=== PATIENT | male | born 1985 | race Caucasian/White ===

== ENCOUNTER → 2016-10-14 | Outpatient (CLI) | payer OTHER ==
[~2016-10-14] MED LIST: BENTYL10 MG PO; DAYPRO600 M1 PO; HYDROCODONE BIT1 T11 PO; INDOMETHACIN50 MG PO; LOMOTIL 0.025 M1 TA1 PO; NKHM; PREDNISONE20 MG PO; ROBAXIN750 MG PO; ZITHROMAX Z PA250 MG PO; ZOFRAN ODT4 MG SL; ZYRTEC10 M2 PO
== END | disposition home or self-care (01) ==
LOC: US 09:41
DX: K76.0 Fatty (change of) liver, not elsewhere classified (principal)

== ENCOUNTER 2020-09-11 09:06 | Inpatient (IN) | payer OTHER ==
[~2020-09-11] VITALS: Ht 182.8 cm; Wt 98.0 kg
[2020-09-11] VITALS (7 sets, daily range): BP systolic 126–159; BP diastolic 86–118
[2020-09-11 09:59] LABS: BASO # 0.1 10*3/uL (0.0-0.1); BASO % 0.8 % (0.0-1.0); EOS # 0.2 10*3/uL (0.0-0.4); HEMATOCRIT 50.6 % (42.0-52.0); LYMPH # 2.6 10*3/uL (1.3-4.4); LYMPH % 33.2 % (27.0-41.0); MEAN CELL VOLUME 79.1 fl (80.0-94.0); MEAN CORPUSCULAR HGB 26.7 pg (27.0-31.0); MEAN CORPUSCULAR HGB CONC 33.8 g/dl (33.0-37.0); MEAN PLATELET VOLUME 10.5 fl (9.6-12.3); MONO # 0.6 10*3/uL (0.1-1.0); MONO % 7.4 % (3.0-9.0); NEUT # 4.4 10*3/uL (2.3-7.9); NEUT % 55.2 % (47.0-73.0); PLATELET COUNT AUTOMATED 279 10*3/uL (130-400); RED CELL DISTRI WIDTH 12.3 % (0-14.5); WHITE BLOOD COUNT 7.9 10*3/uL (4.8-10.8)
[2020-09-11 10:16] LABS: ALBUMIN 3.9 gm/dl (3.1-4.5); ALKALINE PHOSPHATASE 80 U/L (45-117); BUN 7 mg/dl (7-24); CHLORIDE 97 mmol/L (98-107); POTASSIUM 3.5 mmol/L (3.5-5.1); SGOT/AST 41 IU/L (3-35); SGPT/ALT 80 U/L (12-78); SODIUM 130 mmol/L (136-145); TOTAL PROTEIN 8.4 gm/dL (6.4-8.2)
[2020-09-11 10:18] LABS: TROPONIN I < 0.015 ng/ml (<0.045)
[2020-09-11 10:28] LABS: BILIRUBIN Negative (Negative); BLOOD Negative (Negative); CLARITY Clear (Clear); COLOR Yellow (Yellow); GLUCOSE 3+ (Negative); KETONE Negative (Negative); LEUKO ESTERASE Negative (Negative); NITRITE Negative (Negative); SPECIFIC GRAVITY >= 1.030 (1.001-1.030); UROBILINOGEN 0.2 E.U./dl (0.0-1.0)
[2020-09-11 10:35] LABS: BACTERIA TRACE; RBC 0-2 rbc/hpf (0-2); WBC 0-2 wbc/hpf (0-5)
[2020-09-12 06:20] LABS: BASO % 0.6 % (0.0-1.0); EOS # 0.2 10*3/uL (0.0-0.4); EOS % 3.4 % (1.0-4.0); HEMATOCRIT 47.2 % (42.0-52.0); LYMPH # 2.3 10*3/uL (1.3-4.4); MEAN CELL VOLUME 81.7 fl (80.0-94.0); MEAN CORPUSCULAR HGB 26.8 pg (27.0-31.0); MEAN CORPUSCULAR HGB CONC 32.8 g/dl (33.0-37.0); MEAN PLATELET VOLUME 10.6 fl (9.6-12.3); MONO # 0.5 10*3/uL (0.1-1.0); MONO % 6.7 % (3.0-9.0); NEUT # 3.7 10*3/uL (2.3-7.9); PLATELET COUNT AUTOMATED 204 10*3/uL (130-400); RED BLOOD COUNT 5.78 10*6/uL (4.50-5.90); RED CELL DISTRI WIDTH 12.5 % (0-14.5); WHITE BLOOD COUNT 6.7 10*3/uL (4.8-10.8)
[2020-09-12 06:25] LABS: ALBUMIN 3.4 gm/dl (3.1-4.5); BUN 9 mg/dl (7-24); CHLORIDE 103 mmol/L (98-107); CHOLESTEROL 201 mg/dL (<200); POTASSIUM 3.6 mmol/L (3.5-5.1); SGOT/AST 57 IU/L (3-35); SGPT/ALT 73 U/L (12-78); SODIUM 138 mmol/L (136-145)
[2020-09-12 06:31] LABS: ALKALINE PHOSPHATASE 60 U/L (45-117); CREATININE 0.85 mg/dL (0.70-1.30); FREE T4 1.13 ng/dl (0.76-1.46); LDL CHOLESTEROL 98 mg/dL (9-159); TOTAL PROTEIN 6.9 gm/dL (6.4-8.2); TRIGLYCERIDES 391 mg/dl (<150)
[2020-09-12 06:57] LABS: VITAMIN D, 25-HYDROXY 29.8 ng/mL (30-100)
[2020-09-12 08:00] VITALS: BP 150/98
[2020-09-12] MEDS ORDERED: LANTUS SOL100 UNIT/1 SC ×2 (10:53→10:55)
[2020-09-12] MEDS ORDERED: GLUCOPHAGE500 MG PO ×2 (10:53→10:56)
[2020-09-12] MEDS ORDERED: LISINOPRIL2.5 MG PO ×2 (10:53→10:56)
[2020-09-12] MEDS ORDERED: ATORVASTATIN CA40 M1 PO ×2 (10:53→10:56)
== END 2020-09-12 12:39 | disposition home or self-care (01) | DRG 638 ==
LOC: ED 09:06 → EDHOLD 14:28 → 4E 22:52
PROVIDERS: Physician Assistant; Registered Nurse; ADMIT Internal Medicine; ATTEND Internal Medicine
DX: E11.65 Type 2 diabetes mellitus with hyperglycemia (principal); E87.1 Hypo-osmolality and hyponatremia; E87.8 Other disorders of electrolyte and fluid balance, not elsewhere classified; I10 Essential (primary) hypertension; R74.01 Elevation of levels of liver transaminase levels

== ENCOUNTER 2023-11-14 02:50 | Emergency (ER) | payer OTHER ==
[~2023-11-14] VITALS: Ht 180.3 cm; Wt 74.8 kg
[~2023-11-14 02:50] MED LIST changes: +ATORVASTATIN CA40 M1 PO; +GLUCOPHAGE500 MG PO; +LANTUS SOL100 UNIT/1 SC; +LISINOPRIL2.5 MG PO
[2023-11-14 03:25] LABS: BASO % 0.4 % (0.0-1.0); EOS # 0.3 10*3/uL (0.0-0.4); EOS % 3.5 % (1.0-4.0); LYMPH # 1.8 10*3/uL (1.3-4.4); LYMPH % 19.4 % (27.0-41.0); MEAN CELL VOLUME 85.1 fl (80.0-94.0); MEAN CORPUSCULAR HGB 28.8 pg (27.0-31.0); MEAN CORPUSCULAR HGB CONC 33.8 g/dl (33.0-37.0); MEAN PLATELET VOLUME 9.4 fl (9.6-12.3); MONO # 0.5 10*3/uL (0.1-1.0); MONO % 5.2 % (3.0-9.0); NEUT # 6.6 10*3/uL (2.3-7.9); NEUT % 71.1 % (47.0-73.0); PLATELET COUNT AUTOMATED 190 10*3/uL (130-400); RED BLOOD COUNT 7.37 10*6/uL (4.50-5.90); RED CELL DISTRI WIDTH 14.3 % (0-14.5); WHITE BLOOD COUNT 9.3 10*3/uL (4.8-10.8)
[2023-11-14 03:28] LABS: BILIRUBIN Negative (Negative); BLOOD 2+ (Negative); CLARITY Clear (Clear); COLOR Yellow (Yellow); GLUCOSE Negative (Negative); KETONE Trace (Negative); LEUKO ESTERASE 1+ (Negative); NITRITE Negative (Negative)
[2023-11-14 03:36] LABS: URINE AMPHETAMINES Negative (1000ng/ml); URINE BARBITURATES Negative (200ng/ml); URINE BENZODIAZEPINES Positive (200ng/ml); URINE CANNABINOIDS (THC) Negative (50ng/ml); URINE COCAINE Negative (300ng/ml); URINE METHADONE Negative (300ng/ml); URINE OPIATES Negative (300ng/ml); URINE PHENCYCLIDINE Negative (25ng/ml)
[2023-11-14 03:37] LABS: HEMATOCRIT 62.7 % (42.0-52.0)
[2023-11-14] MEDS ORDERED: SODIUM CHLORIDE 0.9% 1,000 ML IV ONE ×2 (03:45)
[2023-11-14 03:48] LABS: BACTERIA 1+; HYALINE CAST 0-2; RBC 16-20 rbc/hpf (0-2)
[2023-11-14 03:53] LABS: ALKALINE PHOSPHATASE 51 U/L (46-116); BUN 10 mg/dl (9-23); CHLORIDE 105 mmol/L (98-107); CPK 124 U/L (34-171); POTASSIUM 3.9 mmol/L (3.4-5.1); SGPT/ALT 28 U/L (5-49); TOTAL PROTEIN 7.4 gm/dL (6.0-8.0)
[2023-11-14 04:02] LABS: ACT PARTIAL THROMBO TIME 24.5 SECONDS (20.0-32.1)
[2023-11-14] MEDS ORDERED: LORazepam 2 MG/ML VIAL IV ONE (04:45)
[2023-11-14] MEDS ORDERED: IOHEXOL 350 MG/ML 100 ML VIAL IV ONE ×2 (05:30→05:40)
[2023-11-14] MEDS ORDERED: SODIUM CHLORIDE 0.9% 100 ML BAG IV ONE (05:30)
[2023-11-14] MEDS ORDERED: SODIUM CHLORIDE 0.9% 100 ML IV ONE (05:40)
== END 2023-11-14 19:12 | disposition left against medical advice (07) ==
LOC: ED 02:50
PROVIDERS: Emergency Medicine
DX: R56.9 Unspecified convulsions (principal); E11.65 Type 2 diabetes mellitus with hyperglycemia; I10 Essential (primary) hypertension; E87.1 Hypo-osmolality and hyponatremia; M10.9 Gout, unspecified; Z98.890 Other specified postprocedural states; Z53.29 Procedure and treatment not carried out because of patient's decision for other reasons

== ENCOUNTER 2024-04-18 03:23 | Emergency (ER) | payer OTHER ==
[~2024-04-18] VITALS: Ht 177.8 cm; Wt 87.2 kg
[2024-04-18 03:24] VITALS: BP 148/100
[2024-04-18 03:53] LABS: MEAN CELL VOLUME 84.3 fl (80.0-94.0); MEAN CORPUSCULAR HGB 27.8 pg (27.0-31.0); MEAN PLATELET VOLUME 9.1 fl (9.6-12.3); PLATELET COUNT AUTOMATED 211 10*3/uL (130-400); RED BLOOD COUNT 7.76 10*6/uL (4.50-5.90); RED CELL DISTRI WIDTH 14.9 % (0-14.5); WHITE BLOOD COUNT 13.2 10*3/uL (4.8-10.8)
[2024-04-18 03:58] VITALS: BP 151/96
[2024-04-18 03:59] LABS: MANUAL DIFF REFLEX YES
[2024-04-18 04:00] LABS: HEMATOCRIT 65.4 % (42.0-52.0)
[2024-04-18] MEDS ORDERED: SODIUM CHLORIDE 0.9% 1,000 ML IV ONE (04:00)
[2024-04-18 04:06] LABS: BILIRUBIN Negative (Negative); BLOOD 3+ (Negative); CLARITY Cloudy (Clear); COLOR Yellow (Yellow); GLUCOSE Negative (Negative); KETONE Trace (Negative); LEUKO ESTERASE 1+ (Negative); NITRITE Negative (Negative); PH 5.5 (4.5-8.0); SPECIFIC GRAVITY 1.025 (1.001-1.030); UROBILINOGEN 0.2 E.U./dl (0.0-1.0)
[2024-04-18 04:13] LABS: URINE AMPHETAMINES Negative (1000ng/ml); URINE BARBITURATES Negative (200ng/ml); URINE BENZODIAZEPINES Negative (200ng/ml); URINE CANNABINOIDS (THC) Positive (50ng/ml); URINE COCAINE Negative (300ng/ml); URINE METHADONE Negative (300ng/ml); URINE OPIATES Negative (300ng/ml); URINE PHENCYCLIDINE Negative (25ng/ml)
[2024-04-18 04:15] LABS: PLATELET SUFFICIENCY NORMAL (NORMAL); TOTAL CELLS COUNTED 100 #CELLS
[2024-04-18 04:17] LABS: ALKALINE PHOSPHATASE 66 U/L (46-116); BUN 13 mg/dl (9-23); CHLORIDE 104 mmol/L (98-107); ETHYL ALCOHOL 3.1 mg/dl (<3); POTASSIUM 4.7 mmol/L (3.4-5.1); SGPT/ALT 23 U/L (5-49); TOTAL PROTEIN 7.7 gm/dL (6.0-8.0)
[2024-04-18 04:18] LABS: BACTERIA 1+; RBC TNTC rbc/hpf (0-2); WBC 21-30 wbc/hpf (0-5)
[2024-04-18 04:29] VITALS: BP 140/94
[2024-04-18] MEDS ORDERED: IOHEXOL 350 MG/ML 100 ML VIAL IV ONE (04:35)
[2024-04-18] MEDS ORDERED: SODIUM CHLORIDE 0.9% 100 ML BAG IV ONE (04:35)
[2024-04-18 05:33] VITALS: BP 133/86
[2024-04-18 05:42] VITALS: BP 128/83
[2024-04-18 06:27] VITALS: BP 132/92
== END 2024-04-18 07:50 | disposition admitted as inpatient to this hospital (09) ==
LOC: ED 03:23 → EDHOLD 06:14 → ED 06:14
PROVIDERS: Internal Medicine
DX: R47.1 Dysarthria and anarthria (principal); D75.1 Secondary polycythemia; Z79.899 Other long term (current) drug therapy